=== PATIENT | male | born 1965 | race Caucasian/White ===

== ENCOUNTER 2019-10-01 15:17 | Emergency (ER) | payer BC, OTHER ==
[~2019-10-01] VITALS: Ht 15.2 cm; Wt 86.2 kg
[2019-10-01 16:22] VITALS: BP 152/88
== END 2019-10-01 17:31 | disposition home or self-care (01) ==
LOC: ER 15:17
DX: S40.021A Contusion of right upper arm, initial encounter (principal); F17.210 Nicotine dependence, cigarettes, uncomplicated; W22.8XXA Striking against or struck by other objects, initial encounter; Y93.89 Activity, other specified; Y92.89 Other specified places as the place of occurrence of the external cause; Y99.8 Other external cause status
CPT/HCPCS: 73090